=== PATIENT | male | born 1975 | race Caucasian/White ===

== ENCOUNTER → 2018-04-15 10:13 | Outpatient (CLI) | payer MEDICAID, SELFPAY ==
--- NOTE | 2018-04-15 10:12 | DI.REPORT_ITS ---
SYMPTOM/DIAGNOSIS: S/P LEFT ROTATOR CUFF REPAIR LEFT SHOULDER: Comparison is made with 06 February 2018. The patient is now status post resection of the distal clavicle and rotator cuff repair with metallic anchors in the humeral head.
== END ==
PROVIDERS: PCP Family Medicine; Visit Provider Physician Assistant
DX: M25.512 Pain in left shoulder (principal); M75.122 Complete rotator cuff tear or rupture of left shoulder, not specified as traumatic; Z98.890 Other specified postprocedural states; Z47.89 Encounter for other orthopedic aftercare
CPT/HCPCS: 73020

== ENCOUNTER 2019-06-03 10:52 | Outpatient (CLI) | payer SELFPAY ==
--- NOTE | 2019-06-03 10:33 | DI.RAD_ITS ---
EXAM: XR SHOULDER LT COMPLETE 2+V INDICATION: pain. COMPARISON: LEFT SHOULDER 1 VIEW from 04/15/2018 TECHNIQUE: 2D digital imaging was performed. FINDINGS: There are stable postsurgical changes in the left humeral head and distal clavicle. The orthopedic h ardware appears in good position. No acute fracture or dislocation is present. The soft tissues are unremarkable.
== END 2019-06-03 11:12 ==
PROVIDERS: PCP Family Medicine; Visit Provider Orthopaedic Surgery
DX: M25.512 Pain in left shoulder (principal); M75.122 Complete rotator cuff tear or rupture of left shoulder, not specified as traumatic; Z98.890 Other specified postprocedural states
CPT/HCPCS: 73030

== ENCOUNTER 2020-04-08 08:35 | Outpatient (CLI) | payer MEDICAID, SELFPAY ==
[2020-04-08 12:44] LABS: Abs Immature Grans 0.02 10^3/uL (0.0-0.06); Absolute Basophil Count 0.07 10^3/uL (0.0-0.2); Absolute Eosinophil Count 0.25 10^3/uL (0.0-0.7); Absolute Lymphocyte Count 2.18 10^3/uL (1.2-3.4); Absolute Monocyte Count 0.44 10^3/uL (0.1-0.8); Absolute Neutrophil Count 5.02 10^3/uL (1.2-6.7); Basophils % 0.9; Eosinophils % 3.1; HCT 50.4 % (40.0-50.0); HGB 16.8 g/dL (13.5-17.5); Immature Grans % 0.3; Lymphocytes % 27.3; MCH 34.1 pg (27.0-33.0); MCHC 33.3 % (32.0-36.0); MCV 102.4 fL (80-95); MPV 9.4 fL (8.0-11.0); Monocytes % 5.5; Neutrophils % 62.9; Nucleated RBC 0 %; Platelet Count 323 10^3/uL (130-400); RBC 4.92 10^6/uL (4.36-5.78); RDW 11.9 % (11.8-14.1); RDW-SD 45.3 fL; WBC 7.98 10^3/uL (4.4-10.8)
[2020-04-08 13:05] LABS: ALT 19 U/L (16-63); AST 13 U/L (15-37); Albumin 3.9 g/dL (3.4-5.0); Alkaline Phosphatase 76 U/L (46-116); Anion Gap 9.2 mmol/L (3-11); BUN 12 mg/dL (7-18); Bilirubin, Total 0.4 mg/dL (0.2-1.0); CO2 27.8 mmol/L (21.0-32.0); CREATININE 1.09 mg/dL (0.70-1.30); Calcium 9.5 mg/dL (8.5-10.1); Chloride 104 mmol/L (98-107); Glucose 90 mg/dL (74-106); Potassium 4.9 mmol/L (3.5-5.1); Sodium 141 mmol/L (136-145); Total Protein 7.4 g/dL (6.4-8.2)
== END 2020-04-08 08:55 ==
PROVIDERS: PCP Family Medicine; Visit Provider Family Medicine
DX: R10.9 Unspecified abdominal pain (principal)
CPT/HCPCS: 36415; 80053; 85025

== ENCOUNTER 2020-05-20 07:55 | Outpatient (CLI) | payer MEDICAID, SELFPAY ==
[2020-05-21 17:26] LABS: COVID-19 RT-PCR Result NEGATIVE (Negative)
== END 2020-05-20 08:15 ==
PROVIDERS: PCP Family Medicine; Visit Provider Surgery
DX: Z11.59 Encounter for screening for other viral diseases (principal); Z01.818 Encounter for other preprocedural examination
CPT/HCPCS: U0003

== ENCOUNTER 2020-05-23 11:03 | Day surgery (SDC) | payer MEDICAID, SELFPAY ==
--- NOTE | 2020-05-23 07:11 | W.PM.ENDDOP ---
Date of service: 05/23/20 Time of Service: 12:16 Endoscopy Report DATE OF PROCEDURE: 05/23/20 PRE-OP DIAGNOSIS: Abdominal pain POST-OP DIAGNOSIS: other (Duodenitis, gastritis, esophagitis, acute rectal inflammation vs chronic, internal hemorrhoids) PROCEDURE: 1.EGD with biopsies 2.Colonoscopy with rectal biopsies ( incomplete prep, so only advanced to the sigmoid colon) SURGEON: Myah Celaya ANESTHESIA: other (General/ASA 2/Bridgette Vo, ROYCE) ESTIMATED BLOOD LOSS: 3 PATHOLOGY: other (Duodenal bx, gastric bx, GE junction bx, rectal bx) COMPLICATIONS: None DISPOSITION: same day INDICATIONS: 45 year old male with upper abdominal pain x 1 yr. The pain sounds like gastritis but he had no improvement in symptoms with PPI PREP: Miralax/Dulcolax PROCEDURE START TIME: 12:16 PROCEDURE END TIME: 12:38 FINDINGS: Upper- inflammation of the duodenum and stomach. Mild inflammation in the distal esophagus consistent with mild reflux [place]- unabkle to advance past the distal sigmoid colon due to a poor prep. There was mild inflammation just above the dentate line, ? acute vs chronic inflammation. Small Grade 1 internal hemorrhoids PROCEDURE DESCRIPTION: After informed consent was obtained the patient was take to the procedure room and placed in a supine position. Monitors were applied and a time out was done. The patients name, date of , procedure type, allergies to medications and metal in their body was reviewed. A bite block was placed and the patient was sedated. Once sedated and comfortable the gastroscope was advanced through the oropharynx which was grossly normal into the esophagus. The proximal and mid-esophagus were normal. Normal peristalsis was observed. In the distal esophagus there was mild inflammation noted. The scope was advanced into the stomach and through the pylorus into the 3rd portion of the duodenum. There was mild inflammation in the 2nd and 1st portion of the duodenum. Biopsies were done. The scope was retracted back into the stomach. There was mild inflammation noted and biopsies were done to rule out H. pylori. There were no ulcers. The scope was retro-flexed. The cardia and fundus were noted to be normal. There was no hiatal hernia noted. The scope was retracted back into the esophagus and biopsies were done of the GE junction to rule out Garza's. The Z line was regular. The GE junction was at 35 cm. While the patient was still sedated they were placed in a left decubitous position. A rectal exam was done. External exam was normal. Internal exam revealed a normal sphincter tone and no palpable masses. The prostate felt smooth and normal in size. The scope was then introduced and retro-flexed. Grade 1 internal hemorrhoids were identified as well as some inflammation. The scope was then advanced to distal sigmoid colon. Unfortunately the prep was poor and there was a lot of stool. The scope was retracted back into the rectum were biopsies were done just above the dentate line. The scope was removed and the patient was woken up and taken back to Same day surgery in stable condition. The patient tolerated the procedure well and there were no immediate complications. Follow up: i will see him in the office in 2 weeks. He will need to repeat his colonoscopy. He may need a 2 days prep next time.
--- NOTE | 2020-05-23 07:12 | W.PM.DSUDISC ---
Discharge Plan Disposition Patient Disposition: HOME Condition: Good Discharge Details Reason For Visit: egd/colo Attending Provider: Myah Celaya Primary Care Provider: Fritz Balderas Home Meds and New Rx's Prescriptions: New omeprazole 40 mg capsule,delayed release(DR/EC) 40 mg PO BID Qty: 60 RF: 0 Continued naproxen [EC-Naproxen] 375 mg tablet,delayed release (DR/EC) 375 mg PO BID Qty: 20 RF: 0 dicyclomine 10 mg capsule 10 mg PO TID PRN (Reason: belly pain) Qty: 20 RF: 0 Discontinued omeprazole 40 mg capsule,delayed release(DR/EC) 40 mg PO DAILY Qty: 30 RF: 2 bisacodyl [Dulcolax (bisacodyl)] 5 mg tablet,delayed release (DR/EC) 5 mg PO ONCE Qty: 4 RF: 0 polyethylene glycol 3350 17 gram powder in packet 255 g PO DAILY Qty: 15 RF: 0 ibuprofen 800 MG tablet 800 mg PO TID Qty: 60 RF: 0 Discharge Instructions Instructions: Gastritis (DC), Hemorrhoids (DC), Diet for Stomach Ulcers and Gastritis (ED), Esophagitis (DC), Duodenitis (DC) Additional Instructions: Findings: Upper- Inflammation of the small bowel, stomach and esophagus Lower small internal hemorrhoids and some acute inflammation Unfortunately your prep was not adequate. There was a lot of stool still within the large bowel and so I could not proceed with the colonoscopy Follow up: 2 weeks in the office Medications: Increase Omeprazole to 2 x a day ( a new prescription has been sent in) Please stop using Ibuprofen Other: please follow a low acid diet Please call if you develop: fevers >101.5 Nausea or Vomiting Abdominal pain that is not transient DAY SURGERY UNIT POST ENDOSCOPY INSTRUCTIONS 1. Because there will be medication in your system for the next 24 hours, you may feel a little sleepy. Your coordination will be affected. Therefore: a. Do not drive or operate dangerous equipment for 24 hours. b. Do not drink alcohol beverages for 24 hours (not even beer). c. Plan to go home and rest for the day. 2. Generally there are no restrictions on your activity after a day or so has gone by, but you may feel a bit fatigued for a few days. 3 After you arrive home you may have a light meal and return to a normal diet as you can tolerate it without feeling sick to your stomach. 4. After surgery, you may feel pain or discomfort. This should be only transient, but if it persists please contact your doctor. 5. If there are any questions regarding the findings of your procedure, please feel free to contact your doctor. 6. If you are unable to contact your doctor with a problem, contact the hospital at [phone]. 7. Continue all your regular medications unless directed otherwise. I understand the above instructions and have no questions. Signature of Patient or Responsible Adult Escort Date/Time Name of Responsible Adult Escort Signature of Nurse Date/Time Activity:: Activity as Tolerated Diet:: low acid diet Discharge Orders Discharge Orders: Discharge Order (Routine); Ordered 05/23/20 Ordered By: Myah Celaya
[2020-05-23 11:25] VITALS: BP 148/93; PULSE 65; RESP 12; TEMP 36; O2SAT 98
[2020-05-23] MEDS: Lactated Ringers 1,000 ML 80 ML IV (11:45)
--- NOTE | 2020-05-23 12:19 | BOWEL_PTH ---
PATIENT: Ej Morrissey LOC: [facility] U#:[id number] AGE/SX: 45/M ROOM: RE05/23/[address]: Myah Celaya MD : [id number] BED: DIS: 05/23/2020 SPEC #: [id number] RECD: 05/23/20 15:12 STATUS: MICHELLE RE #: [id number] KYLE: 05/23/20 12:[address]: Myah Celaya DEPT: Surgical Specimen RECD BY: Rosie Jarrett ENTERED: 05/23/20 15:14 SP TYPE: Bowel OTHR DR: Fritz Balderas MD Tissues: 1 - BIOPSY BOWEL 2 - BIOPSY BOWEL 3 - BIOPSY BOWEL 4 - BIOPSY BOWEL Procedures: GROSS AND MICRO LEVEL 4 Comments: [id number]
[2020-05-23 13:21] VITALS: BP 157/97; PULSE 45; RESP 16; TEMP 36; O2SAT 100
== END 2020-05-23 13:39 | disposition home or self-care (01) ==
LOC: SUR 11:03
PROVIDERS: PCP Family Medicine; Visit Provider Surgery
PROC: (CPT 43239; principal; 2020-05-23 12:30)
DX: R10.13 Epigastric pain (principal); K29.80 Duodenitis without bleeding; K29.70 Gastritis, unspecified, without bleeding; K20.9 Esophagitis, unspecified; K64.0 First degree hemorrhoids
CPT/HCPCS: 43239; 45331; 88305; J2704

== ENCOUNTER 2021-03-15 11:06 | Outpatient (CLI) | payer MEDICAID, SELFPAY ==
[2021-03-15 12:20] LABS: HCT 43.4 % (40.0-50.0); MCHC 34.6 % (32.0-36.0); MCV 101.2 fL (80-95); MPV 8.6 fL (8.0-11.0); Platelet Count 279 10^3/uL (130-400); RBC 4.29 10^6/uL (4.36-5.78); RDW 11.7 % (11.8-14.1); RDW-SD 43.7 fL; WBC 9.06 10^3/uL (4.4-10.8)
[2021-03-15 12:36] LABS: ALT 19 U/L (16-63); AST 13 U/L (15-37); Albumin 3.8 g/dL (3.4-5.0); Alkaline Phosphatase 82 U/L (46-116); Anion Gap 9.6 mmol/L (3-11); BUN 9 mg/dL (7-18); Bilirubin, Total 0.5 mg/dL (0.2-1.0); CO2 27.4 mmol/L (21.0-32.0); CREATININE 1.1 mg/dL (0.70-1.30); Calcium 9.5 mg/dL (8.5-10.1); Chloride 102 mmol/L (98-107); Glucose 80 mg/dL (74-106); Potassium 4.7 mmol/L (3.5-5.1); Sodium 139 mmol/L (136-145); Total Protein 7.1 g/dL (6.4-8.2)
== END 2021-03-15 11:07 | disposition home or self-care (01) ==
LOC: LOS 11:07
PROVIDERS: PCP Family Medicine; Referring Provider Family Medicine; Visit Provider Family Medicine
DX: R10.9 Unspecified abdominal pain (principal); R53.83 Other fatigue
CPT/HCPCS: 36415; 80053; 85027

== ENCOUNTER 2021-11-28 13:32 | Outpatient (CLI) | payer MEDICAID, SELFPAY ==
--- NOTE | 2021-11-28 13:00 | DI.RAD_ITS ---
Exam(s) XR SHOULDER LT COMPLETE 2+V EXAM: XR SHOULDER LT COMPLETE 2+V CLINICAL HISTORY: left shoulder pain. TECHNIQUE: 2D digital imaging was performed of the left shoulder. Three images were obtained. AP, Y-view and axillary views were obtained. COMPARISON: CR XR SHOULDER LT COMPLETE 2+V from 06/03/2019 FINDINGS: BONES: No acute fracture is present. No bony destructive lesion is seen. JOINTS: No dislocation present. There are stable postsurgical changes in the left shoulder. SOFT TISSUE: Normal. IMPRESSION: Stable postsurgical changes in the left shoulder. No acute abnormality. DATA REPOSITORY: RADIATION DOSE DELIVERED:
== END 2021-11-28 13:33 | disposition home or self-care (01) ==
LOC: DIORS 13:32
PROVIDERS: PCP Family Medicine; Referring Provider Family Medicine; Visit Provider Student in an Organized Health Care Education/Training Program
DX: M25.512 Pain in left shoulder (principal); Z98.890 Other specified postprocedural states
CPT/HCPCS: 73030

== ENCOUNTER → 2021-12-12 01:58 | Outpatient (CLI) | payer MEDICAID, SELFPAY ==
--- NOTE | 2021-12-12 08:15 | DI.MRI_ITS ---
Exam(s) MR UPPER JOINT LT WO EXAM: MR UPPER JOINT LT WO CLINICAL HISTORY: LEFT SHOULDER PAIN, PAINFUL ORTHO HARDWARE, LT ROT CUFF TEAR, T84.84XA,. TECHNIQUE: Multiplanar multisequence MRI was performed. COMPARISON: MR MRI - L UPPER JOINT WO CONT from 03/13/2018 CR XR SHOULDER LT COMPLETE 2+V from 11/28/2021 FINDINGS: There is artifact from the patient's prior surgery. BONES: There is no fracture or contusion pattern. JOINTS: Postsurgical changes are seen at the acromioclavicular joint. The glenohumeral joint is norm al. TENDONS: Supraspinatus: Portions of the supraspinatus tendon are obscured by artifact but no definite full-thi ckness tear is seen. Infraspinatus: Unremarkable. Subscapularis: Hyperintense signal is seen in the subscapularis tendon at the insertion site suspicio us for partial tear. Teres Minor: Unremarkable. Biceps and [place]: Unremarkable. MUSCLES: Unremarkable. GLENOID LABRUM: Unremarkable on this noncontrast examination. SOFT TISSUES: Unremarkable. LIGAMENTS: Unremarkable. OTHER: There is a small amount of fluid in the subacromial subdeltoid bursa. IMPRESSION: 1. Postsurgical changes seen near the greater tuberosity. The resulting artifact does limit the exam ination. 2. Hyperintense signal seen in the subscapularis tendon at its insertion site suspicious for partial tear. 3. Small amount of fluid seen in the subacromial subdeltoid bursa. DATA REPOSITORY:
== END ==
PROVIDERS: PCP Family Medicine; Visit Provider Student in an Organized Health Care Education/Training Program
DX: M25.512 Pain in left shoulder (principal); M25.412 Effusion, left shoulder; M67.814 Other specified disorders of tendon, left shoulder; Z98.890 Other specified postprocedural states
CPT/HCPCS: 73221

== ENCOUNTER 2021-12-15 00:11 | Outpatient (CLI) | payer MEDICAID, SELFPAY ==
--- NOTE | 2021-12-15 07:00 | DI.RAD_ITS ---
Exam(s) XR ABDOMEN FLAT PLATE EXAM: 2D digital imaging was performed. CLINICAL HISTORY: constipation for months,k59.00. COMPARISON: No exams were available for comparison TECHNIQUE: Supine views of the abdomen was performed. One images were obtained. FINDINGS: LUNG BASES: Clear. BOWEL GAS PATTERN: Nondistended. There is a small amount of stool seen in the colon and rectum. FREE AIR: None. CALCIFICATIONS: No radiopaque calcifications. OSSEOUS STRUCTURES: Normal for age. OTHER FINDINGS: None. IMPRESSION: No evidence of an acute abdomen. DATA REPOSITORY: RADIATION DOSE DELIVERED:
== END 2021-12-15 00:31 ==
PROVIDERS: PCP Family Medicine; Visit Provider Family Medicine
DX: K59.09 Other constipation (principal)
CPT/HCPCS: 74018

== ENCOUNTER 2022-10-16 00:35 | Outpatient (CLI) | payer MEDICAID, SELFPAY ==
--- NOTE | 2022-10-16 08:00 | DI.CT_ITS ---
Exam(s) CT UPPER EXTREMITY LT WO EXAM: CT UPPER EXTREMITY LT WO CLINICAL HISTORY: L SHOULDER PAIN,painful ortho hardware,lt rotator cuff tear,t84.84xa, TECHNIQUE: Imaging Protocol: Axial computed tomography images with coronal and sagittal reformatted images were created and reviewed. CONTRAST MATERIAL: None COMPARISON: No exams were available for comparison FINDINGS: OSSEOUS: There are 4 fastener devices in the lateral aspect of the humeral head, most probably relate d to prior rotator cuff surgery. There are no fractures. No radiographic evidence of osteomyelitis. No prominent bone resorption around the fasteners. There is an element of superior subluxation of the humeral head in the osseous glenoid noted. This i s indirect evidence of significant rotator cuff pathology, possibly retearing. There are no osteophytes. No degenerative subarticular cysts in the humeral head and osseous glenoid . No loose intra-articular bodies. Very faint calcification noted in the soft tissues immediately a djacent to the greater tuberosity. There is some AC joint widening which is probably postsurgical. No evidence of os acromiale. IMPRESSION: Evidence of previous rotator cuff surgery or surgeries. Upward subluxation of the humeral head in the glenoid fossa sent which may indicate retearing. Other findings as above. RADIATION DOSE DELIVERED: 612.23mGy.cm Total DLP DATA REPOSITORY: All CT scans at this facility are submitted to the National Radiology Data Registry (NRDR) Dose Index Registry (DIR) with the [employer] ([employer]). RADIATION OPTIMIZATION: All CT scans at this facility use at least one of these dose optimization te chniques: automated exposure control; mA and/or kV adjustment per patient size (includes targeted exa ms where dose is matched to clinical indication); or iterative reconstruction.
== END 2022-10-16 00:55 ==
LOC: DI 00:35
PROVIDERS: PCP Family Medicine; Visit Provider Student in an Organized Health Care Education/Training Program
DX: T84.84XA Pain due to internal orthopedic prosthetic devices, implants and grafts, initial encounter
CPT/HCPCS: 73200

== ENCOUNTER 2023-02-13 03:37 | Outpatient (CLI) | payer MEDICAID, SELFPAY ==
[2023-02-13 10:15] LABS: Calculated LDL 99 mg/dL (<100); Cholesterol 165 mg/dL (<200); HDL Cholesterol 55 mg/dL (40-60); Magnesium 1.9 mg/dL (1.8-2.4); Triglyceride 58 mg/dL (<150)
[2023-02-14 10:26] LABS: HIV-1/2 Ag & Ab Screen Negative (Negative)
== END 2023-02-13 03:38 | disposition home or self-care (01) ==
LOC: LBO 03:37
PROVIDERS: PCP Family Medicine; Visit Provider Family Medicine
DX: Z00.00 Encounter for general adult medical examination without abnormal findings; E83.42 Hypomagnesemia; E78.5 Hyperlipidemia, unspecified
CPT/HCPCS: 36415; 80061; 87389; 83735

== ENCOUNTER 2023-07-08 00:59 | Outpatient (CLI) | payer MEDICAID, SELFPAY ==
[2023-07-08 12:24] LABS: Abs Immature Grans 0.01 10^3/uL (0.0-0.06); Absolute Basophil Count 0.09 10^3/uL (0.0-0.2); Absolute Eosinophil Count 0.39 10^3/uL (0.0-0.7); Absolute Lymphocyte Count 2.24 10^3/uL (1.2-3.4); Absolute Monocyte Count 0.46 10^3/uL (0.1-0.8); Basophils % 1.1; Eosinophils % 4.6; HCT 43.9 % (40.0-50.0); HGB 15.6 g/dL (13.5-17.5); Immature Grans % 0.1; Lymphocytes % 26.4; MCH 36.1 pg (27.0-33.0); MCHC 35.5 % (32.0-36.0); MCV 102 fL (80-95); MPV 9.2 fL (8.0-11.0); Monocytes % 5.4; Neutrophils % 62.4; Platelet Count 262 10^3/uL (130-400); RBC 4.32 10^6/uL (4.36-5.78); RDW 11.7 % (11.8-14.1); RDW-SD 44.4 fL; WBC 8.49 10^3/uL (4.4-10.8)
[2023-07-08 12:33] LABS: Anion Gap 8.8 mmol/L (3-11); BUN 11 mg/dL (7-18); CO2 27.2 mmol/L (21.0-32.0); CREATININE 1.1 mg/dL (0.70-1.30); Calcium 9.4 mg/dL (8.5-10.1); Chloride 102 mmol/L (98-107); Estimated GFR 81.78 (mL/min/1.73m2); Glucose 109 mg/dL (74-106); Potassium 4.6 mmol/L (3.5-5.1); Sodium 138 mmol/L (136-145)
[2023-07-08 19:10] LABS: Lab Add On Test DONE
[2023-07-08 19:37] LABS: Hemoglobin A1C 5.2 % (<5.7)
== END 2023-07-08 01:00 | disposition home or self-care (01) ==
PROVIDERS: PCP Family Medicine; Visit Provider Family Medicine
DX: D64.9 Anemia, unspecified (principal); E87.1 Hypo-osmolality and hyponatremia; R73.9 Hyperglycemia, unspecified
CPT/HCPCS: 36415; 80048; 83036; 85025

== ENCOUNTER 2024-04-24 13:16 | Emergency (ER) | payer MEDICAID, SELFPAY ==
[2024-04-24] VITALS (20 sets, daily range): BP systolic 95–174; BP diastolic 72–127; PULSE 74–127; RESP 14–16; TEMP 36.4–36.6; O2SAT 92–100
--- NOTE | 2024-04-24 13:00 | RT.EKG_ITS ---
APPROVED REPORT Exam: Resting ECG Reason for Exam: Unresponsive Patient Location: E HR:130 bpm ECG Measurements Heart Rate 130 AXIS WA 129 P 83 QRSd 80 QRS 0 QT 294 T 67 QTc 432 Conclusion Sinus tachycardia. 130 acute stemi
[2024-04-24] MEDS: LORazepam 2 MG/ML VIAL (13:15)
--- NOTE | 2024-04-24 13:15 | DI.RAD_ITS ---
Exam(s) XR PORTABLE CHEST AP EXAM: XR PORTABLE CHEST AP CLINICAL HISTORY: seizure activity; intubation TECHNIQUE: 2D digital imaging was performed. COMPARISON: No exams were available for comparison FINDINGS: A nasogastric tube is been placed which projects in the fundus of the stomach. An endotracheal tube has been placed as lies in the trachea 1 cm above the aortic arch. Multiple overlying monitoring leads. LUNGS: Clear. No pleural abnormality seen. HEART: Normal size. AORTA: Normal diameter. BONES: Unremarkable for age. Soft tissues: Unremarkable. IMPRESSION: Satisfactory placement of endotracheal tube and gastric tube. DATA REPOSITORY: RADIATION DOSE DELIVERED:
--- NOTE | 2024-04-24 13:15 | DI.CT_ITS ---
Exam(s) CT HEAD WO EXAM: CT HEAD WO CLINICAL HISTORY: seizure activity. TECHNIQUE: Imaging Protocol: Axial computed tomography images with coronal and sagittal reformatted images were created and reviewed COMPARISON: CT HEAD WITHOUT CONTRAST from 09/02/2015 FINDINGS: Ventricles and Extra axial spaces: Normal in size and morphology for the patient's age. Hemorrhage: None. Cerebral parenchyma: No evidence of acute infarct or mass. Midline shift: None. Brainstem/Cerebellum: Normal. Calvarium: Normal. Visualized Paranasal sinuses:Small mucous retention cyst floors of both maxillary sinuses. Mastoids: Clear. Soft Tissues: Unremarkable. ORBITS: Unremarkable. PITUITARY: Not enlarged. IMPRESSION: No acute intracranial process. RADIATION DOSE DELIVERED: Total DLP DATA REPOSITORY: All CT scans at this facility are submitted to the National Radiology Data Registry (NRDR) Dose Index Registry (DIR) with the [employer] (A[employer]). RADIATION OPTIMIZATION: All CT scans at this facility use at least one of these dose optimization te chniques: automated exposure control; mA and/or kV adjustment per patient size (includes targeted exa ms where dose is matched to clinical indication); or iterative reconstruction.
[2024-04-24] MEDS: Etomidate 20 MG/10 ML VIAL (13:21)
[2024-04-24] MEDS: Rocuronium 50 MG/5 ML SYR (13:21)
[2024-04-24] MEDS: Propofol 200 MG/20 ML VIAL (13:23)
[2024-04-24 13:32] LABS: BE (Venous) -9 mmol/L (-2-3); HCO3 (Venous) 21 mmol/L (23-28); O2 Sat (Venous) 50 %; TCO2 (Venous) 20 mmol/L (24-29); pO2 (Venous) 36 mmHg
[2024-04-24] MEDS: Aspirin 300 MG SUPP (13:35)
[2024-04-24 13:36] LABS: Abs Immature Grans 0.16 10^3/uL (0.0-0.06); Absolute Monocyte Count 1.34 10^3/uL (0.1-0.8); Basophils % 0.5 %; Eosinophils % 0.8 %; HCT 48.9 % (40.0-50.0); HGB 16.6 g/dL (13.5-17.5); Immature Grans % 0.7 %; Lactate 13.3 mmol/L (0.6-1.4); Lymphocytes % 9.8 %; MCH 36.1 pg (27.0-33.0); MCHC 33.9 % (32.0-36.0); MCV 106 fL (80-95); Monocytes % 5.7 %; Neutrophils % 82.5 %; Platelet Count 265 10^3/uL (130-400); RDW 11.9 % (11.8-14.1); RDW-SD 46.5 fL; WBC 23.57 10^3/uL (4.4-10.8); pCO2 (Venous) 70 mmHg (41-51); pH (Venous) 7.08 (7.31-7.41)
[2024-04-24 13:42] LABS: Absolute Basophil Count 0.12 10^3/uL (0.0-0.2); Absolute Eosinophil Count 0.19 10^3/uL (0.0-0.7); Absolute Lymphocyte Count 2.31 10^3/uL (1.2-3.4); Absolute Neutrophil Count 19.45 10^3/uL (1.2-6.7)
[2024-04-24 13:45] LABS: Ammonia 92 umol/L (11-32)
[2024-04-24] MEDS: PROPOFOL 1,000 MG/100 ML BTL 3.7 MG (13:45)
[2024-04-24 13:51] LABS: INR 1.1 (0.9-1.1); PTT Activated 24.7 sec (23.6-32.8); Prothrombin Time 10.9 sec (9.1-11.1)
[2024-04-24 13:53] LABS: Diff Comment RBC Morph Reviewed
[2024-04-24 13:54] LABS: Macrocytosis 1+
[2024-04-24 14:02] LABS: ALT 126 U/L (16-63); AST 141 U/L (15-37); Albumin 3.8 g/dL (3.4-5.0); Alkaline Phosphatase 93 U/L (46-116); Anion Gap 15.9 mmol/L (3-11); BUN 13 mg/dL (7-18); Bilirubin, Total 0.54 mg/dL (0.2-1.0); CO2 22.1 mmol/L (21.0-32.0); CREATININE 1.8 mg/dL (0.70-1.30); Calcium 10.3 mg/dL (8.5-10.1); Chloride 108 mmol/L (98-107); Creatine Kinase 571 U/L (39-308); ETHANOL BLOOD 3.1 mg/dL (<10); Estimated GFR 45.01 (mL/min/1.73m2); Glucose 122 mg/dL (74-106); Potassium 5.9 mmol/L (3.5-5.1); Sodium 146 mmol/L (136-145); Total Protein 7.6 g/dL (6.4-8.2)
[2024-04-24 14:04] LABS: Troponin I 217 ng/L (< or =60)
[2024-04-24 14:08] LABS: Salicylate 5.9 mg/dL (<2.8)
[2024-04-24 14:12] LABS: Acetaminophen < 2 ug/mL (10-30)
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
[2024-04-24 14:18] LABS: Bilirubin Negative (Negative); Blood Moderate (Negative); Clarity Sl Cloudy (Clear); Glucose Negative (Negative); Ketones Negative (Negative); Leukocyte Esterase Negative (Negative); Nitrite Negative (Negative); Specific Gravity >= 1.030 (1.005-1.025); Urobilinogen 0.2 mg/dL (Up to 0.2)
[2024-04-24 14:19] LABS: Procalcitonin < 0.1 ng/mL
[2024-04-24 14:19] LABS: *AMPHETAMINES SCREEN URINE Negative (Negative); *BARBITURATES SCREEN URINE Negative (Negative); *BENZODIAZEPINES SCREEN URINE Positive (Negative); Cannabinoids THC Positive (Negative); Cocaine Screen,Urine Negative (Negative); METHADONE URINE SCREEN Negative (Negative); OPIATES URINE SCREEN Negative (Negative)
[2024-04-24] MEDS: Lactated Ringers 1,000 ML 1000 ML IV (14:22)
[2024-04-24] MEDS: MAGNESIUM SULFATE 2 GM/50 ML BAG IVINF (14:22)
[2024-04-24] MEDS: Insulin REGULAR-Human 100 UNITS/ML UNIT IV (14:22)
[2024-04-24 14:23] LABS: Tricyclic Antidepressants Negative (Negative)
[2024-04-24] MEDS: Dextrose 50%-Water 25 GM/50 ML SYR IVP (14:23)
[2024-04-24] MEDS: CALCIUM GLUCONATE in NaCl 1 GM/50 ML BAG IVPB (14:25)
[2024-04-24 14:26] LABS: Bacteria Few HPF (Negative); C & S Indicated? No; Casts 3-5 Hyaline LPF (Negative); Crystals Negative HPF (Negative); Epithelial Cells Few HPF (Negative); Mucus Negative (Negative); WBC 0-2 HPF (0-5)
[2024-04-24] MEDS: levETIRAcetam 2,000 MG in Normal Saline 100 ML 400 MG IVPB (14:26)
== END 2024-04-24 14:33 | disposition short-term general hospital (02) ==
PROVIDERS: Physician Assistant; Emergency Provider Emergency Medicine; PCP Family Medicine
DX: G40.909 Epilepsy, unspecified, not intractable, without status epilepticus (principal); R41.82 Altered mental status, unspecified; R00.0 Tachycardia, unspecified; F17.210 Nicotine dependence, cigarettes, uncomplicated
CPT/HCPCS: 31500; 36415; 80053; 80307; 82550; 82805; 84145; 86850; 86900; 86901; 87637; 93005; 96374; 96375; 99291; 70450; 71045; 80320; 80329; 81003; 81015; 82140; 83605; 83735; 84484; 85025; 85610; 85730; 93010; J0613; J1815; J1953; J2060; J2704; J3475

== ENCOUNTER 2024-05-22 00:23 | Outpatient (CLI) | payer MEDICAID, SELFPAY ==
--- NOTE | 2024-05-22 08:30 | DI.US_ITS ---
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 Ejection fraction is reduced. It is approximately 30 to 35%. There is an apical anteroapical and inferoapical wall motion abnormality with an apical mural thromb us Normal right ventricular size and function Both atria are normal in size There is no structural or hemodynamically significant valvular disease Estimated right ventricular systolic pressure is 32 mmHg Small pericardial effusion, no evidence of tamponade Wall motion Left Ventricle The left ventricle is normal size. Left ventricular systolic function is decreased. There is normal l eft ventricular wall thickness. Regional wall motion abnormalities are noted. There is no ventricular septal defect visualized. Left ventricular thrombus is present. LVEF is 31-35%. Right Ventricle The right ventricle is normal size. Right ventricular systolic function is grossly normal. Atria The left atrium size is normal. The right atrium size is normal. The interatrial septum is intact wit h no evidence for an atrial septal defect. Aortic Valve The aortic valve is normal in structure. There is no aortic valvular stenosis. No aortic regurgitatio n is present. Mitral Valve The mitral valve is normal in structure. No evidence of mitral valve stenosis. Trace to mild mitral r egurgitation. Tricuspid Valve The tricuspid valve is normal in structure. There is no tricuspid valve stenosis. Mild tricuspid regu rgitation. The RVSP is 31.9 mmHg. Pulmonic Valve The pulmonary valve is normal in structure. There is no pulmonic valvular stenosis. There is no pulmo erich valvular regurgitation. Great Vessels The aortic root is normal in size. Ascending aorta is not well visualized. Aortic arch is normal in c aliber. The IVC is dilated. The IVC collapses <50% with inspiration. Pericardium Moderate anterior pericardial effusion. Trace posterior pericardial effusion. 2D Dimensions IVSD d PLAX 0.70 cm M: 0.6-1.2 Ao Root d 3.23 cm M: 3.1 - 3.7 LVPW d PLAX 0.68 cm M: 0.6 - 1.2 LVID d PLAX 4.77 cm M: 4.2 - 5.8 LVDs 3.98 cm M: 2.5 - 4.0 LV EF Teichholz 34.7 % FS 16.54 % LV EDV (Teich) 106.2 mL LV ESV (Teich) 69.4 mL Stroke Vol Index (Teich) 21.91 M-Mode TAPSE 1.32 cm (M/F) >1.7 Auto EF LV EDV A4C 109.6 mL LV EDV A2C 136.5 mL LV EDV BP 121.0 mL LV ESV A4C 75.4 mL LV ESV A2C 88.8 mL LV ESV BP 82.4 mL LVEF(%) A4C 31.2 % LVEF(%) A2C 35.0 % LVEF(%) BP 31.9 % LV SV A4C 34.1 ml LV SV A2C 47.7 ml LV SV BP 38.6 ml LV CO A4C 2.6 L/min LV CO A2C 3.6 L/min LV CO BP 3.1 L/min HR A4C 76.43 BPM HR A2C 76.27 BPM LV EDV Index (BP) LA Volume LA Length A4C 3.3 cm LA Length A2C 2.5 cm LA Area A4C s 6.04 cm2 LA Area A2C s 6.82 cm2 LA Vol A4C A-L 9.27 mL LA Vol A2C A-L 15.57 mL LA Vol Biplane A-L 13.8 mL LA Vol/BSA A4C A-L LA Vol/BSA A2C A-L LA Vol/BSA BP A-L 8.2 mL/m2 LA Vol A4C MOD 8.7 mL LA Vol A2C MOD 14.1 mL LA Vol BP MOD 12.5 mL RA Volume RA Area A4C 5.8 cm2 RA ESV A4C (A-L) 9.1mL RA Vol/BSA A4C A-L RA Length A4C 3.1 cm RA ESV A4C (MOD) 8.9mL LV Diastology MV E' medial 0.066 (>0.07 m/s) MV E Vmax 0.50 (0.4-1.3 m/s) MV E/E' MED 7.56 (<14) MV A Vmax 0.55 (0.4-1.3 m/s) MV E' lateral 0.077 (>0.1 m/s) E/A Ratio 0.9 MV E/E' LAT 6.55 (<14) MV E' Average 0.072 m/s MV E/E'(average) 7.02 Aortic Valve AoV Vmax 0.87 m/s LVOT Vmax 0.83 m/s AoV Peak Grad 3.0 mmHg LVOT Peak Grad 2.8 mmHg AoV Area (Vmax) 2.88 cm2 LVOT VTI 0.162 m AoV VTI 0.194 m LVOT Mean Grad 1.6 mmHg AoV Mean Unruly. 0.66 m/s LVOT SV 48.60 mL AoV Mean Grad 1.9 mmHg LVOT Diam s 1.95 cm AoV Area (VTI) 2.50 cm2 AV Regurg Peak Gr. 2.99 mmHg Velocity Ratio 0.95 Mitral Valve MV DT 201 (160-240 msec) Pulmonary Valve PV Vmax 0.85 (0.5-1.5 m/s) RVOT Vmax 0.86 m/s PV Peak Grad 2.9 mmHg RVOT Peak Gr. 3.0 mmHg PV Mean Unruly 0.64 m/s RVOT VTI 0.161 m PV Mean Grad 1.8 mmHg RVOT Mean Gr. 1.7 mmHg Tricuspid Valve RA Pressure 15.00 mmHg TR Vmax 2.05 m/s TR Peak Grad 16.8 mmHg RVSP (TR) 31.9 mmHg
== END 2024-05-22 00:43 ==
LOC: DI 00:23
PROVIDERS: PCP Family Medicine; Visit Provider Internal Medicine Cardiovascular Disease
DX: I42.9 Cardiomyopathy, unspecified (principal)
CPT/HCPCS: 93306

== ENCOUNTER 2024-06-02 09:30 | Emergency (ER) | payer MEDICAID, SELFPAY ==
[2024-06-02] VITALS (75 sets, daily range): BP systolic 73–118; BP diastolic 30–86; PULSE 68–118; RESP 5–39; TEMP 36.6–36.9; O2SAT 97–100
--- NOTE | 2024-06-02 09:45 | DI.US_ITS ---
Exam(s) US LOWER EXTREMITY VENOUS LT EXAM: US LOWER EXTREMITY VENOUS LT CLINICAL HISTORY: L leg swelling. TECHNIQUE: Lower extremity venous ultrasound performed using grayscale, color-flow, and spectral Do ppler analysis. COMPARISON: No exams were available for comparison FINDINGS: The common femoral, femoral and popliteal veins demonstrate normal compressibility, augmentation, and color Doppler. The posterior tibial and peroneal veins are patent. Partially occlusive thrombus is seen in a soleus branch vessel in the calf. No saphenous vein thrombosis or other superficial venous thrombosis is seen. No hematoma or Garvin's cyst is seen. Edema present in the lower extremity subc utaneous fat. IMPRESSION: Partially occlusive thrombus in a branch vessel in the region of the calf. No additional thrombus id entified. DATA REPOSITORY:
--- NOTE | 2024-06-02 09:45 | RT.EKG_ITS ---
APPROVED REPORT Exam: Resting ECG Reason for Exam: Abnormal EKG Patient Location: E HR:72 bpm ECG Measurements Heart Rate 72 AXIS OR 156 P 68 QRSd 84 QRS 116 QT 413 T 119 QTc 452 Conclusion Sinus rhythm...normal P axis, V-rate 60- 99 Anterolateral infarct, age indeterminate...Q >35mS, flat/neg T, V3-V6,I,aVL Narrow complex normal sinus rhythm at a rate of 72. Right axis deviation. Low voltage limb leads. Biphasic T waves in a pseudo Wellens pattern in V3 through V5. Compared to prior and [facility] system las t month biphasic T waves appear new. Low voltage appears persistent.
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
--- NOTE | 2024-06-02 10:15 | RT.EKG_ITS ---
APPROVED REPORT Exam: Resting ECG Reason for Exam: Abnormal EKG Patient Location: E HR:69 bpm ECG Measurements Heart Rate 69 AXIS OK 142 P 71 QRSd 76 QRS 116 QT 416 T 84 QTc 448 Conclusion Sinus rhythm...normal P axis, V-rate 60- 99 Anterolateral infarct, age indeterminate...Q >35mS, flat/neg T, V3-V6,I,aVL Narrow complex normal sinus rhythm at a rate of 69. Intervals within normal limits. Persistent biph asic T waves V4 through V6. No acute change compared to prior dated earlier today.
--- NOTE | 2024-06-02 10:15 | DI.CT_ITS ---
Exam(s) CT ABD AORTA CTA W RUNOFF EXAM: CT ABD AORTA CTA W RUNOFF CLINICAL HISTORY: bilateral diminished pedal pulses, swelling. TECHNIQUE: Imaging Protocol: Axial CT angiography was performed with multi-slice acquisition and mu lti-planar and/or 3D reconstructions. CONTRAST MATERIAL: Intravenous: Omnipaque 350 Contrast volume:100 ml Contrast route:IV - Oral: / no COMPARISON: No exams were available for comparison FINDINGS: Vascular Structures: Heart: Normal size. Coronary artery calcifications. Abdomen: Celiac [place]/SMA: No evidence of stenosis. Renal Arteries: No evidence of stenosis. There is a single renal artery perfusing the left kidney. There are 2 arteries perfusing the right kidney. Aorta: Occlusion in the mid to distal abdominal aorta at the level of L4. The bilateral common and e xternal iliac arteries are also occluded. The internal iliac arteries are heavily calcified and sten otic. No aneurysm. No dissection. Lower extremities: Right: Common Femoral: Moderate stenosis. Superficial Femoral: No evidence of stenosis. Popliteal: No evidence of stenosis. Knee Trifurcation: No evidence of stenosis. Posterior Tibial: No evidence of stenosis. Peroneal: No evidence of stenosis. Left: Common Femoral: No evidence of stenosis. Superficial Femoral: No evidence of stenosis. Popliteal: No evidence of stenosis. Knee Trifurcation: No evidence of stenosis. Posterior Tibial: No evidence of stenosis. Peroneal: No evidence of stenosis. Soft Tissues: Severe edema in the feet and bilateral ankles. Edema extending up to the level of the knee on the left. Multiple collateral vessels seen in the abdominal wall and lower chest musculature. Lungs: No acute findings. Liver: Normal density. No measurable mass. Gallbladder and biliary tract: No radiodense calculus or dilation. Pancreas: Normal density, no abnormal calcifications or inflammatory process. Spleen: Normal. Kidneys: Normal size, contour and axis. No radiodense stones or obstructive uropathy. No masses seen. Adrenal glands: No masses seen. Aorta: Abdominal portion non-dilated. Bladder: Symmetric distention, no gross wall thickening. Bowel: No obstruction or bowel wall thickening. Peritoneal cavity: No ascites, collection or mesenteric inflammatory response. Bones: Internal medullary piotr in the right tibia. Reproductive: Unremarkable. IMPRESSION: Occlusion of the aorta and bilateral common and external iliac arteries. The common femoral arteries are reconstituted via collaterals. The superficial femoral arteries through arteries to the level o f the feet appear patent and show mild scattered calcification. Findings called to Froy New, ER provider. RADIATION DOSE DELIVERED: Total DLP DATA REPOSITORY: All CT scans at this facility are submitted to the National Radiology Data Registry (NRDR) Dose Index Registry (DIR) with the [employer] (ACR). RADIATION OPTIMIZATION: All CT scans at this facility use at least one of these dose optimization te chniques: automated exposure control; mA and/or kV adjustment per patient size (includes targeted exa ms where dose is matched to clinical indication); or iterative reconstruction.
[2024-06-02 10:29] LABS: Lactate 0.8 mmol/L (0.6-1.4)
[2024-06-02 10:31] LABS: Abs Immature Grans 0.02 10^3/uL (0.0-0.06); Absolute Basophil Count 0.04 10^3/uL (0.0-0.2); Absolute Eosinophil Count 0.21 10^3/uL (0.0-0.7); Absolute Lymphocyte Count 1.61 10^3/uL (1.2-3.4); Absolute Monocyte Count 0.44 10^3/uL (0.1-0.8); Absolute Neutrophil Count 4.46 10^3/uL (1.2-6.7); Basophils % 0.6 %; Eosinophils % 3.1 %; HCT 36.5 % (40.0-50.0); HGB 12.1 g/dL (13.5-17.5); Immature Grans % 0.3 %; Lymphocytes % 23.7 %; MCH 34.5 pg (27.0-33.0); MCHC 33.2 % (32.0-36.0); MCV 104 fL (80-95); MPV 8.1 fL (8.0-11.0); Monocytes % 6.5 %; Neutrophils % 65.8 %; Platelet Count 243 10^3/uL (130-400); RBC 3.51 10^6/uL (4.36-5.78); RDW 13.8 % (11.8-14.1); RDW-SD 53.1 fL; WBC 6.78 10^3/uL (4.4-10.8)
[2024-06-02 10:51] LABS: ALT 20 U/L (16-63); AST 18 U/L (15-37); Alkaline Phosphatase 92 U/L (46-116); Anion Gap 7.1 mmol/L (3-11); BUN 7 mg/dL (7-18); Bilirubin, Total 0.39 mg/dL (0.2-1.0); CO2 27.9 mmol/L (21.0-32.0); Chloride 93 mmol/L (98-107); Creatine Kinase 82 U/L (39-308); Estimated GFR 91.12 (mL/min/1.73m2); Glucose 104 mg/dL (74-106); Lipase 39 U/L (16-77); Potassium 4.2 mmol/L (3.5-5.1); Sodium 128 mmol/L (136-145)
[2024-06-02 11:00] LABS: NT-proBNP 1645 pg/mL (<300); Troponin I 19 ng/L (<or=76)
[2024-06-02 11:13] LABS: Procalcitonin < 0.1 ng/mL
[2024-06-02] MEDS: Normal Saline - Diluent 50 ML VIAL IJ (11:39)
[2024-06-02] MEDS: Omnipaque 350 MG/ML 100 ML BTL IJ (11:40)
[2024-06-02 11:50] LABS: Bilirubin Negative (Negative); Blood Trace-intact (Negative); Clarity Clear (Clear); Glucose >=1000 mg/dL (Negative); Ketones Negative (Negative); Leukocyte Esterase Negative (Negative); Nitrite Negative (Negative); Specific Gravity 1.015 (1.005-1.025); Urobilinogen 0.2 mg/dL (Up to 0.2); pH 6.5 (5-8)
[2024-06-02 11:59] LABS: Bacteria Negative HPF (Negative); C & S Indicated? No; Casts Negative LPF (Negative); Crystals Negative HPF (Negative); Epithelial Cells Rare HPF (Negative); Mucus Negative (Negative); RBC 0-2 HPF (0-2); WBC Negative HPF (0-5)
[2024-06-02] MEDS: Normal Saline 500 ML IV (12:10)
[2024-06-02 12:43] LABS: Troponin I 19 ng/L (<or=76)
[2024-06-02] MEDS: Heparin in 0.45% NaCl 25,000 UNIT/250 ML BAG 10 UNIT IV (13:56)
[2024-06-02 14:02] LABS: INR 1.1 (0.9-1.1); PTT Activated 28.7 sec (23.6-32.8); Prothrombin Time 10.6 sec (9.1-11.1)
--- NOTE | 2024-06-03 13:15 | NUR.NOTE ---
Breanna Yan called asking if we had his walker here in the ED. After looking around I did find a walker that fit the description she gave. I labeled it with his name and she stated that she would stop in to pick it up tonight on her way back from [facility]. Nursing Note:
== END 2024-06-02 17:42 | disposition short-term general hospital (02) ==
PROVIDERS: Physician Assistant; Emergency Provider Physician Assistant; PCP Family Medicine
DX: I74.09 Other arterial embolism and thrombosis of abdominal aorta (principal); I82.462 Acute embolism and thrombosis of left calf muscular vein; Z79.82 Long term (current) use of aspirin; Z79.84 Long term (current) use of oral hypoglycemic drugs
CPT/HCPCS: 36415; 75635; 80053; 82550; 83690; 84145; 87426; 93005; 99285; 81003; 81015; 83605; 83880; 84484; 85025; 85610; 85730; 93010; 93971; 99284; J1644; J3490

== ENCOUNTER 2024-08-14 11:24 | Outpatient (CLI) | payer MEDICAID, SELFPAY ==
--- NOTE | 2024-08-14 11:24 | RT.EKG_ITS ---
APPROVED REPORT Exam: Resting ECG Reason for Exam: follow up Patient Location: O HR:73 bpm ECG Measurements Heart Rate 73 AXIS ND 142 P 77 QRSd 102 QRS 199 QT 365 T 75 QTc 403 Conclusion Sinus rhythm...normal P axis, V-rate 50- 99 Probable left atrial enlargement...P >50mS, <-0.10mV V1 Anterolateral infarct, age indeterminate...Q >35mS, flat/neg T, V3-V6,I,aVL
== END 2024-08-14 11:25 | disposition home or self-care (01) ==
LOC: DI.CARD 11:25
PROVIDERS: PCP Family Medicine; Visit Provider Internal Medicine Cardiovascular Disease
DX: I25.10 Atherosclerotic heart disease of native coronary artery without angina pectoris (principal)
CPT/HCPCS: 93010

== ENCOUNTER 2024-10-02 00:04 | Outpatient (CLI) | payer MEDICAID, SELFPAY ==
--- NOTE | 2024-10-02 07:09 | DI.US_ITS ---
APPROVED REPORT EXAM: Comprehensive 2D, Doppler, and color-flow Echocardiogram Patient Location: [facility] Consultant: Nando Velasquez RDCS (AE) Indications: Recheck LV function and clot Conclusion Normal left ventricular wall thickness and chamber size. Ejection fraction is approximately 40%. [place] inferior wall and base of the heart contract normally. There is anterior and anteroapical akines is. No discrete thrombus is visualized Normal right ventricular size and function Both atria are normal in size Aortic valve is mildly sclerotic and trileaflet without stenosis or regurgitation Mildly thickened mitral leaflets, mild mitral regurgitation Estimated right ventricular systolic pressure is 44 mmHg Wall motion Left Ventricle The left ventricle is normal size. Overall left ventricular function is decreased. There is normal le ft ventricular wall thickness. Regional wall motion abnormalities are noted. Base of the heart moves adequately well. Entire apex is akinetic There is no ventricular septal defect visualized. Spontaneou s echo contrast is noted, consistent with low flow state. Cannot rule out left ventricular thrombus. LVEF is 40%. Right Ventricle The right ventricle is normal size. Right ventricular systolic function is grossly normal. Atria The left atrium size is normal. The right atrium size is normal. The interatrial septum is intact wit h no evidence for an atrial septal defect. Aortic Valve The aortic valve is mildly sclerotic Aortic valve is trileaflet. There is no aortic valvular stenosis . No aortic regurgitation is present. Mitral Valve Mildly thickened mitral leaflets No evidence of mitral valve stenosis. Mild mitral regurgitation. Tricuspid Valve The tricuspid valve is normal in structure. There is no tricuspid valve stenosis. Mild tricuspid regu rgitation. The RVSP is 44.3 mmHg. Pulmonic Valve The pulmonary valve is normal in structure. There is no pulmonic valvular stenosis. There is no pulmo erich valvular regurgitation. Great Vessels The aortic root is normal in size. Ascending aorta is not well visualized. Aortic arch is normal in c aliber. The IVC is dilated. The IVC collapses <50% with inspiration. Pericardium There is no pericardial effusion. 2D Dimensions IVSD d PLAX 0.58 cm M: 0.6-1.2 Ao Root d 2.84 cm M: 3.1 - 3.7 LVPW d PLAX 0.58 cm M: 0.6 - 1.2 IVC Diam exp d SLAX 2.5 cm LVID d PLAX 5.64 cm M: 4.2 - 5.8 LVDs 4.82 cm M: 2.5 - 4.0 LV EF Teichholz 30.3 % FS 14.42 % LV EDV (Teich) 155.9 mL LV ESV (Teich) 108.7 mL Stroke Vol Index (Teich) 27.29 M-Mode TAPSE 2.54 cm (M/F) >1.7 Auto EF LV EDV A4C 176.2 mL LV EDV A2C 202.5 mL LV EDV BP 189.1 mL LV ESV A4C 123.6 mL LV ESV A2C 139.7 mL LV ESV BP 131.1 mL LVEF(%) A4C 29.9 % LVEF(%) A2C 31.0 % LVEF(%) BP 30.7 % LV SV A4C 52.6 ml LV SV A2C 62.9 ml LV SV BP 58.1 ml LV CO A4C 2.6 L/min LV CO A2C 3.9 L/min LV CO BP 3.3 L/min HR A4C 49.25 BPM HR A2C 62.18 BPM LV EDV Index (BP) LA Volume LA Length A4C 3.8 cm LA Length A2C 4.8 cm LA Area A4C s 10.32 cm2 LA Area A2C s 17.37 cm2 LA Vol A4C A-L 24.06 mL LA Vol A2C A-L 53.20 mL LA Vol Biplane A-L 40.5 mL LA Vol/BSA A4C A-L LA Vol/BSA A2C A-L LA Vol/BSA BP A-L 23.4 mL/m2 LA Vol A4C MOD 22.3 mL LA Vol A2C MOD 48.5 mL LA Vol BP MOD 37.2 mL RA Volume RA Area A4C 12.7 cm2 RA ESV A4C (A-L) 41.9mL RA Vol/BSA A4C A-L RA Length A4C 3.3 cm RA ESV A4C (MOD) 34.1mL LV Diastology MV E' medial 0.077 (>0.07 m/s) MV E Vmax 0.75 (0.4-1.3 m/s) MV E/E' MED 9.69 (<14) MV A Vmax 0.55 (0.4-1.3 m/s) MV E' lateral 0.077 (>0.1 m/s) E/A Ratio 1.4 MV E/E' LAT 9.69 (<14) MV E' Average 0.077 m/s MV E/E'(average) 9.69 Aortic Valve AoV Vmax 0.97 m/s LVOT Vmax 0.88 m/s AoV Peak Grad 3.8 mmHg LVOT Peak Grad 3.1 mmHg AoV Area (Vmax) 2.95 cm2 LVOT VTI 0.161 m AoV VTI 0.207 m LVOT Mean Grad 2.0 mmHg AoV Mean Unruly. 0.72 m/s LVOT SV 52.13 mL AoV Mean Grad 2.3 mmHg LVOT Diam s 2.00 cm AoV Area (VTI) 2.52 cm2 AV Regurg Peak Gr. 3.75 mmHg Velocity Ratio 0.91 Mitral Valve MV DT 130 (160-240 msec) MV Vmax TIPS 0.73 m/s MV Mean Grad 0.8 (<2mmHg) MV VTI 0.284 m Tricuspid Valve RA Pressure 15.00 mmHg TR Vmax 2.71 m/s TR Peak Grad 29.3 mmHg RVSP (TR) 44.3 mmHg
== END 2024-10-02 00:24 ==
LOC: DI 00:04
PROVIDERS: PCP Family Medicine; Visit Provider Internal Medicine Cardiovascular Disease
DX: I35.8 Other nonrheumatic aortic valve disorders (principal)
CPT/HCPCS: 93306

== ENCOUNTER 2024-11-27 09:44 | Outpatient (CLI) | payer MEDICAID, SELFPAY | END 2024-11-27 09:45 | disposition home or self-care (01) | LOC: DI.CARD 09:45 | PROVIDERS: PCP Family Medicine; Visit Provider Internal Medicine Cardiovascular Disease | CPT/HCPCS: 93010 ==

== ENCOUNTER 2025-03-02 10:30 | Outpatient (CLI) | payer MEDICAID, SELFPAY ==
--- NOTE | 2025-03-02 10:30 | RT.EKG_ITS ---
APPROVED REPORT Exam: Resting ECG Reason for Exam: CAD Patient Location: O HR:75 bpm ECG Measurements Heart Rate [address] 146 P 81 QRSd 83 QRS 155 QT 396 T 134 QTc 443 Conclusion Sinus rhythm...normal P axis, V-rate 50- 99 Probable left atrial enlargement...P >50mS, <-0.10mV V1 Right axis Extensive anterior infarct
== END 2025-03-02 10:31 | disposition home or self-care (01) ==
PROVIDERS: Visit Provider Internal Medicine Cardiovascular Disease
DX: I42.9 Cardiomyopathy, unspecified (principal); I25.10 Atherosclerotic heart disease of native coronary artery without angina pectoris; I21.3 ST elevation (STEMI) myocardial infarction of unspecified site
CPT/HCPCS: 93010

== ENCOUNTER 2025-03-26 15:24 | Outpatient (REF) | payer MEDICAID, SELFPAY ==
[2025-03-26 15:15] LABS: Abs Immature Grans 0.03 10^3/uL (0.0-0.06); HCT 43.5 % (40.0-50.0); HGB 13.9 g/dL (13.5-17.5); Immature Grans % 0.3 %; MCH 29.8 pg (27.0-33.0); MCHC 32.0 % (32.0-36.0); MCV 93 fL (80-95); MPV 9.4 fL (8.0-11.0); Platelet Count 276 10^3/uL (130-400); RBC 4.66 10^6/uL (4.36-5.78); RDW 21.3 % (11.8-14.1); RDW-SD 73.3 fL; WBC 9.89 10^3/uL (4.4-10.8)
[2025-03-26 15:42] LABS: Anisocytosis 1+
[2025-03-26 16:01] LABS: ALT 23 U/L (16-63); AST 18 U/L (15-37); Albumin 3.9 g/dL (3.4-5.0); Alkaline Phosphatase 83 U/L (46-116); Anion Gap 10.1 mmol/L (3-11); BUN 7 mg/dL (7-18); Bilirubin, Total 0.6 mg/dL (0.2-1.0); CO2 25.9 mmol/L (21.0-32.0); Calcium 9.5 mg/dL (8.5-10.1); Calculated LDL 42 mg/dL (<100); Chloride 103 mmol/L (98-107); Cholesterol 108 mg/dL (<200); Estimated GFR 107.15 (mL/min/1.73m2); Folate 18.9 ng/mL (8.6-20.0); Glucose 84 mg/dL (74-106); HDL Cholesterol 54 mg/dL (>or=40); Potassium 4.4 mmol/L (3.5-5.1); Sodium 139 mmol/L (136-145); TSH 0.93 uIU/mL (0.36-3.74); Total Protein 7.7 g/dL (6.4-8.2); Triglyceride 64 mg/dL (<150); Vitamin B12 400 pg/mL (193-986); Vitamin D 25 Total 21 ng/mL (30-100)
[2025-03-26 16:06] LABS: Hemoglobin A1C 5.2 % (<5.7)
[2025-03-29 10:02] LABS: Prealbumin 28 mg/dL (20-40)
== END 2025-03-26 15:25 | disposition home or self-care (01) ==
LOC: NCHCN 15:24
PROVIDERS: PCP Family Medicine; Visit Provider Family Medicine
DX: E46 Unspecified protein-calorie malnutrition (principal); Z00.00 Encounter for general adult medical examination without abnormal findings
CPT/HCPCS: 80053; 80061; 82306; 82607; 82746; 83036; 84134; 84443; 85025

== ENCOUNTER 2025-06-28 03:18 | Outpatient (CLI) | payer MEDICAID, SELFPAY ==
--- NOTE | 2025-06-28 09:30 | DI.US_ITS ---
APPROVED REPORT EXAM: Comprehensive 2D, Doppler, and color-flow Echocardiogram Patient Location: [facility] [employer] Captain: Margo Dickson RDCS (AE) Indications: REcheck LV function, CAD, Cardiomyopathy Other Information Study Quality: Fair. Technically limited study due to body habitus, history of smoking. Conclusion Left ventricle is enlarged. Ejection fraction is 35%. The distal left ventricle is akinetic to dyskinetic. No thrombus is visualized. Base of the heart contracts normally Normal right ventricular size and function Both atria are normal in size The aortic valve is sclerotic and trileaflet without stenosis or regurgitation Mild mitral regurgitation Estimated right ventricular systolic pressure is 34 mmHg Wall motion Left Ventricle Technically limited imaging. History of smoking very low parasternal window. Left ventricular systolic function is moderate to severely decreased. Regional wall motion abnormalities are noted. There is no ventricular septal defect visualized. LVEF is 33%. Right Ventricle Right ventricle is grossly normal in size. Right ventricular systolic function is grossly normal. Atria The left atrium size is normal. The right atrium size is normal. The interatrial septum is intact with no evidence for an atrial septal defect. Aortic Valve The aortic valve is sclerotic Aortic valve is trileaflet. There is no aortic valvular stenosis. No aortic regurgitation is present. Mitral Valve The mitral valve is normal in structure. No evidence of mitral valve stenosis. Mild mitral regurgitation. Tricuspid Valve The tricuspid valve is normal in structure. There is no tricuspid valve stenosis. Trace tricuspid regurgitation. The RVSP is 34.2 mmHg. Pulmonic Valve Pulmonic valve is not well visualized. There is no pulmonic valvular stenosis. There is no pulmonic valvular regurgitation. Great Vessels The aortic root is normal in size. Ascending aorta is not well visualized. Aortic arch is normal in caliber. The IVC collapses <50% with inspiration. Pericardium There is no pericardial effusion. 2D Dimensions Ao Root d 3.28 cm M: 3.1 - 3.7 Auto EF LV EDV A4C 183.9 mL LV EDV A2C 204.5 mL LV EDV BP 190.5 mL LV ESV A4C 122.6 mL LV ESV A2C 136.0 mL LV ESV BP 127.0 mL LVEF(%) A4C 33.3 % LVEF(%) A2C 33.5 % LVEF(%) BP 33.3 % LV SV A4C 61.3 ml LV SV A2C 68.5 ml LV SV BP 63.5 ml LV CO A4C 4.3 L/min LV CO A2C 4.4 L/min LV CO BP 4.4 L/min HR A4C 70.17 BPM HR A2C 64.38 BPM LV EDV Index (BP) LV Strain Long Pk Overal Avg (s) 6.52 LA Volume LA Length A4C 4.6 cm LA Length A2C 5.3 cm LA Area A4C s 16.21 cm2 LA Area A2C s 17.73 cm2 LA Vol A4C A-L 48.81 mL LA Vol A2C A-L 50.17 mL LA Vol Biplane A-L 53.4 mL LA Vol/BSA A4C A-L LA Vol/BSA A2C A-L LA Vol/BSA BP A-L 31.2 mL/m2 LA Vol A4C MOD 45.4 mL LA Vol A2C MOD 47.7 mL LA Vol BP MOD 50.1 mL RA Volume RA Area A4C 14.7 cm2 RA ESV A4C (A-L) 45.1mL RA Vol/BSA A4C A-L RA Length A4C 4.1 cm RA ESV A4C (MOD) 41.0mL LV Diastology MV E' medial 0.050 (>0.07 m/s) MV E Vmax 0.61 (0.4-1.3 m/s) MV E/E' MED 12.34 (<14) MV E' lateral 0.091 (>0.1 m/s) MV E/E' LAT 6.75 (<14) MV E' Average 0.070 m/s MV E/E'(average) 8.73 Aortic Valve AoV Vmax 1.28 m/s LVOT Vmax 0.99 m/s AoV Peak Grad 6.6 mmHg LVOT Peak Grad 3.9 mmHg AoV Area (Vmax) 2.48 cm2 LVOT VTI 0.182 m AoV VTI 0.252 m LVOT Mean Unruly. 0.64 m/s AoV Mean Unruly. 0.89 m/s LVOT Mean Grad 1.9 mmHg AoV Mean Grad 3.5 mmHg LVOT SV 58.47 mL AoV Area (VTI) 2.32 cm2 LVOT Diam s 2.00 cm Velocity Ratio 0.77 Mitral Valve MV DT 213 (160-240 msec) MV Vmax TIPS 0.62 m/s MV Mean Grad 0.7 (<2mmHg) MV VTI 0.229 m Pulmonary Valve PV Vmax 0.78 (0.5-1.5 m/s) PV Peak Grad 2.4 mmHg PV Mean Unruly 0.57 m/s PV Mean Grad 1.5 mmHg Tricuspid Valve RA Pressure 8.00 mmHg TR Vmax 2.56 m/s TV S' 0.15 m/s TR Peak Grad 26.2 mmHg RVSP (TR) 34.2 mmHg
== END 2025-06-28 03:38 ==
PROVIDERS: PCP Family Medicine; Visit Provider Internal Medicine Cardiovascular Disease
DX: I25.10 Atherosclerotic heart disease of native coronary artery without angina pectoris (principal); I42.9 Cardiomyopathy, unspecified
CPT/HCPCS: 93306